=== PATIENT | male | born 1965 | race American Indian/Alaskan Native ===

== ENCOUNTER 2016-07-08 03:13 | Emergency (ER) | payer MEDICARE ==
[2016-07-08 03:57] LABS: Basophils % (Auto) 0.8 % (0.0-1.8); Eosinophils % (Auto) 4.6 % (0.0-4.3); Hematocrit 43.7 % (35.5-45.6); Hemoglobin 14.1 gm/dl (11.8-15.2); Mean Corpuscular HGB Conc 32 % (32-34); Mean Corpuscular Hemoglobin 27 pg (28-32); Mean Corpuscular Volume 83 fl (84-94); Platelet Count 266 K/mm3 (140-440); Red Cell Distribution Width 14.4 % (13.2-15.2); White Blood Count 5.9 K/mm3 (4.5-11.0)
[2016-07-08 04:19] LABS: Blood Urea Nitrogen 13 mg/dL (9-20); Calcium 9.1 mg/dL (8.4-10.2); Carbon Dioxide 28 mmol/L (22-30); Glucose 82 mg/dL (75-100); Sodium 141 mmol/L (137-145)
[2016-07-08 04:23] LABS: Anion Gap 15 mmol/L
[2016-07-08 10:08] VITALS: BP 119/73
--- NOTE | 2016-07-09 14:05 | ED Elopement Review ---
ED Pt Elopement review - Results review Lab results: Laboratory Tests 07/08/16 07/08/16 07/08/16 03:41 03:41 03:41 WBC 5.9 RBC 5.30 H Hgb 14.1 Hct 43.7 MCV 83 L MCH 27 L MCHC 32 RDW 14.4 Plt Count 266 Lymph % (Auto) 30.3 [place] % (Auto) 13.0 H Eos % (Auto) 4.6 H Baso % (Auto) 0.8 Lymph # 1.8 [place] # 0.8 Eos # 0.3 Baso # 0.1 Seg Neutrophils % 51.3 Seg Neutrophils # 3.1 Sodium 141 Potassium 4.0 Chloride 102.0 Carbon Dioxide 28 Anion Gap 15 BUN 13 Creatinine 1.0 Estimated GFR > 60 BUN/Creatinine Ratio 13.00 Glucose 82 Calcium 9.1 Plasma/Serum Alcohol < 0.01 - Call Back decision Pt Call Back Decision: No action required
== END 2016-07-08 14:30 | disposition left against medical advice (07) ==
LOC: ED 03:13
DX: R46.89 Other symptoms and signs involving appearance and behavior (principal); Z53.21 Procedure and treatment not carried out due to patient leaving prior to being seen by health care provider
CPT/HCPCS: 36415; 80048; 85025; G0480; 80320

== ENCOUNTER 2016-07-19 09:49 | Emergency (ER) | payer MEDICARE | END 2016-07-19 10:14 | disposition left against medical advice (07) | LOC: ED 09:49 | DX: N23 Unspecified renal colic (principal); Z88.5 Allergy status to narcotic agent; Z91.013 Allergy to seafood; Z53.21 Procedure and treatment not carried out due to patient leaving prior to being seen by health care provider ==

== ENCOUNTER 2017-10-21 07:11 | Emergency (ER) | payer MEDICARE ==
[2017-10-21 08:24] LABS: Basophils # (Auto) 0.1 K/mm3 (0.0-0.1); Basophils % (Auto) 0.8 % (0.0-1.8); Eosinophils # (Auto) 0.2 K/mm3 (0.0-0.4); Eosinophils % (Auto) 2.2 % (0.0-4.3); Hematocrit 46.6 % (35.5-45.6); Hemoglobin 15.6 gm/dl (11.8-15.2); Lymphocytes # (Auto) 1.5 K/mm3 (1.2-5.4); Lymphocytes % (Auto) 20.2 % (13.4-35.0); Mean Corpuscular HGB Conc 34 % (32-34); Mean Corpuscular Hemoglobin 28 pg (28-32); Mean Corpuscular Volume 83 fl (84-94); Monocytes # (Auto) 0.7 K/mm3 (0.0-0.8); Monocytes % (Auto) 9.2 % (0.0-7.3); Platelet Count 279 K/mm3 (140-440); Red Blood Count 5.62 M/mm3 (3.65-5.03); Red Cell Distribution Width 14.2 % (13.2-15.2)
[2017-10-21 08:38] LABS: BUN/Creatinine Ratio 20; Blood Urea Nitrogen 16 mg/dL (9-20); Hemolysis Index 11
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
[2017-10-21 09:39] LABS: Bilirubin,Urine NEG (Negative); Blood,Urine NEG (Negative); Color,Urine Yellow (Yellow); Mucus,Urine FEW /HPF; Protein,Urine <15 mg/dL mg/dL (Negative); Urobilinogen,Urine < 2.0 mg/dL (<2.0); WBC,Urine < 1.0 /HPF (0.0-6.0)
[2017-10-21 09:58] LABS: Amphetamine Screen,Urine PRESUMPTIVE NEGATIVE; Benzodiazepines Screen,Urine PRESUMPTIVE NEGATIVE; Cannabinoid Screen,Urine PRESUMPTIVE NEGATIVE; Methadone Screen,Urine PRESUMPTIVE NEGATIVE; Opiate Screen,Urine PRESUMPTIVE NEGATIVE
[2017-10-21 10:09] LABS: Cocaine Screen,Urine PRESUMPTIVE POSITIVE
[2017-10-21 21:28] VITALS: BP 103/62
== END 2017-10-22 00:36 ==
LOC: ED 07:11
DX: F33.3 Major depressive disorder, recurrent, severe with psychotic symptoms (principal); F14.10 Cocaine abuse, uncomplicated; J44.9 Chronic obstructive pulmonary disease, unspecified; F17.200 Nicotine dependence, unspecified, uncomplicated; Z95.0 Presence of cardiac pacemaker; Z88.5 Allergy status to narcotic agent; Z91.013 Allergy to seafood; Z79.899 Other long term (current) drug therapy
CPT/HCPCS: 36415; 80048; 80307; 81001; 85025; 93005; 93010; 99285; G0480; 80320

== ENCOUNTER 2017-11-13 02:31 | Emergency (ER) | payer MEDICARE ==
[2017-11-13 03:15] LABS: Basophils % (Auto) 0.8 % (0.0-1.8); Eosinophils # (Auto) 0.3 K/mm3 (0.0-0.4); Eosinophils % (Auto) 5.7 % (0.0-4.3); Hematocrit 44.5 % (35.5-45.6); Lymphocytes # (Auto) 1.6 K/mm3 (1.2-5.4); Lymphocytes % (Auto) 27.9 % (13.4-35.0); Mean Corpuscular HGB Conc 34 % (32-34); Mean Corpuscular Hemoglobin 28 pg (28-32); Mean Corpuscular Volume 82 fl (84-94); Monocytes # (Auto) 0.7 K/mm3 (0.0-0.8); Monocytes % (Auto) 11.5 % (0.0-7.3); Platelet Count 342 K/mm3 (140-440); Red Cell Distribution Width 14.6 % (13.2-15.2)
[2017-11-13 03:47] LABS: BUN/Creatinine Ratio 10; Blood Urea Nitrogen 9 mg/dL (9-20); Calcium 9.3 mg/dL (8.4-10.2); Hemolysis Index 4
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
[2017-11-13] MEDS ORDERED: ATIVAN IM PRN (05:02)
[2017-11-13] MEDS ORDERED: GEODON IM ONE ×2 (06:05→06:08)
--- NOTE | 2017-11-13 13:13 | Consultation ---
History of Present Illness - Reason for Consult Consult date: 11/13/17 Reason for consult: Mental Health Evaluation Requesting physician: MICHAEL GOMEZ - Chief Complaint Chief complaint: "The patient is sedated" - History of Present Psychiatric Illness 52-year-old male presenting with a chief complaint of suicidal ideation. Today the patient is sedated and unable to cooperate during the interview. The patient was given PRN medication for agitation prior to my arrival to his room. Medications and Allergies Allergies Allergy/AdvReac Type Severity Reaction Status Date / Time shellfish derived Allergy Anaphylaxis Verified 10/21/17 07:19 morphine AdvReac Itching Verified 10/21/17 07:19 Home Medications Medication Instructions Recorded Confirmed Last Taken Type OLANzapine [Zyprexa] 20 mg PO QHS 10/07/13 11/13/17 1 Day Ago History ~04/25/16 10 Sertraline [Zoloft] 100 mg PO QHS 10/07/13 11/13/17 1 Day Ago History ~04/25/16 100 ALBUTEROL Inhaler [ProAir HFA 2 puff IH QID PRN #1 inhalation 04/26/16 11/13/17 Unknown Rx Inhaler] Active Meds: Active Medications Lorazepam (Ativan) 2 mg IM Q8H PRN PRN Reason: Agitation Last Admin: 11/13/17 06:00 Dose: 2 mg Past psychiatric history - Past Medical History Past Medical History: other (Unable to obtain ) Past Surgical History: Other (Unable to obtain) - past Psychiatric treatment and history psychiatric treatment history: Unable to obtain and psy hx and fam psy hx. - Social History Social history: other (Unable to obtain ) Mental Status Exam - Vital signs Last Vital Signs Temp 97.7 F 11/13/17 04:37 Pulse 77 11/13/17 04:37 Resp 16 11/13/17 04:37 BP 101/61 11/13/17 04:37 Pulse Ox 97 11/13/17 04:37 - Exam Narrative exam: The MSE could not be completed because of the patient's condition. Results Result Diagrams: 11/13/17 03:08 11/13/17 03:08 Abnormal lab results 11/13/17 11/13/17 11/13/17 Range/Units 03:07 03:07 03:08 RBC (3.65-5.03) M/mm3 MCV (84-94) fl [place] % (Auto) (0.0-7.3) % Eos % (Auto) (0.0-4.3) % Chloride 97.8 L (98-107) mmol/L Glucose 127 H (75-100) mg/dL Salicylates < 0.3 L (2.8-20.0) mg/dL Acetaminophen < 5.0 L (10.0-30.0) ug/mL 11/13/17 Range/Units 03:08 RBC 5.40 H (3.65-5.03) M/mm3 MCV 82 L (84-94) fl [place] % (Auto) 11.5 H (0.0-7.3) % Eos % (Auto) 5.7 H (0.0-4.3) % Chloride (98-107) mmol/L Glucose (75-100) mg/dL Salicylates (2.8-20.0) mg/dL Acetaminophen (10.0-30.0) ug/mL All other labs normal. Assessment and Plan Assessment and plan: Impression: The patient is sedated. UDS have not been collected. Recommendation/Plan: Continue 1013 and reassess patient is 24 hours.
[2017-11-13 17:43] LABS: Bacteria,Urine 1+ /HPF (Negative); Bilirubin,Urine NEG (Negative); Blood,Urine NEG (Negative); Color,Urine Yellow (Yellow); Hyaline Casts,Urine 1 /LPF; Mucus,Urine 2+ /HPF; Protein,Urine <15 mg/dL mg/dL (Negative); Sperm,Urine 1+ /HPF (NP)
[2017-11-13 18:14] LABS: Amphetamine Screen,Urine PRESUMPTIVE NEGATIVE; Benzodiazepines Screen,Urine PRESUMPTIVE NEGATIVE; Cannabinoid Screen,Urine PRESUMPTIVE NEGATIVE; Methadone Screen,Urine PRESUMPTIVE NEGATIVE; Opiate Screen,Urine PRESUMPTIVE NEGATIVE
[2017-11-13 18:44] LABS: Cocaine Screen,Urine PRESUMPTIVE POSITIVE
[2017-11-13 22:39] VITALS: BP 110/62
== END 2017-11-14 02:31 ==
LOC: ED 02:31
DX: R45.851 Suicidal ideations (principal); R44.0 Auditory hallucinations; J44.9 Chronic obstructive pulmonary disease, unspecified
CPT/HCPCS: 36415; 80048; 80307; 81001; 85025; 96372; 99285; G0480; J2060; J3486; 80320

== ENCOUNTER 2017-12-24 08:15 | Emergency (ER) | payer MEDICARE ==
[2017-12-24] MEDS ORDERED: DELTASONE PO ONE (08:46)
[2017-12-24] MEDS ORDERED: TYLENOL PO ONE (08:46)
[2017-12-24] MEDS ORDERED: DUONEB *Not for PRN Use IH ONE ×2 (08:46→10:37)
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
[2017-12-24] MEDS ORDERED: HYDROCORTISONE CR TP ONE (09:02)
--- NOTE | 2017-12-24 10:14 | XRay Report ---
FINAL REPORT EXAM: XR FOOT 3+V RT HISTORY: right foot pain acute on chronic TECHNIQUE: Three views right foot. PRIORS: None currently available. FINDINGS: There is no acute fracture. There is no evidence for healing fracture. There is no acute dislocation. Moderate nonspecific arthrosis of the subtalar joint. Mild arthrosis at the midfoot. Calcifications around the Achilles tendon. There is no cortical destruction to suggest osteomyelitis. Nonspecific lucency at the inferior aspect of the calcaneus. Calcaneal internal fixation hardware appears intact without loosening or dislodgement. IMPRESSION: No acute osseous findings. Intact hardware. [id number] multifocal arthrosis. Nonspecific lesion at the inferior calcaneus. Further imaging with calcaneal x-rays may be helpful for better evaluation. Calcifications around the Achilles tendon may be related to calcific tendinopathy.
[2017-12-24] MEDS ORDERED: ZITHROMAX PO ONE (10:42)
[2017-12-24 10:51] VITALS: BP 136/85
== END 2017-12-24 11:22 | disposition home or self-care (01) ==
LOC: ED 08:15
DX: M79.671 Pain in right foot (principal); J44.1 Chronic obstructive pulmonary disease with (acute) exacerbation; Z91.013 Allergy to seafood; Z88.5 Allergy status to narcotic agent; F31.9 Bipolar disorder, unspecified; F17.200 Nicotine dependence, unspecified, uncomplicated; J45.909 Unspecified asthma, uncomplicated
CPT/HCPCS: 73630; 94640; 99283; J7512; A6250

== ENCOUNTER 2018-03-10 05:42 | Emergency (ER) | payer MEDICARE ==
[2018-03-10 05:52] VITALS: BP 106/76
[2018-03-10] MEDS ORDERED: XYLOCAINE TOPICAL 2% 5ML TP ONE (06:59)
[2018-03-10] MEDS ORDERED: XYLOCAINE TOPICAL 2% 5ML ONE (07:02)
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
[2018-03-10] MEDS ORDERED: TRIPLE ANTIBIOTIC TP ONE (08:42)
--- NOTE | 2018-03-10 08:51 | XRay Report ---
FINAL REPORT EXAM: XR ELBOW 2V LT HISTORY: swelling COMPARISONS: None. FINDINGS: AP and lateral views left elbow There is focal soft tissue swelling over the olecranon. No left elbow joint effusion, fracture or gross malalignment identified. IMPRESSION: Olecranon bursitis may be posttraumatic, infectious or inflammatory in etiology. Correlation with history and patient's symptoms is requested. No elbow joint effusion or gross malalignment.
== END 2018-03-10 09:21 | disposition home or self-care (01) ==
LOC: ED 05:42
DX: M70.32 Other bursitis of elbow, left elbow (principal); F31.9 Bipolar disorder, unspecified; J44.9 Chronic obstructive pulmonary disease, unspecified; F17.200 Nicotine dependence, unspecified, uncomplicated; Z95.0 Presence of cardiac pacemaker; Z91.013 Allergy to seafood; Z88.5 Allergy status to narcotic agent
CPT/HCPCS: 99283; A6250

== ENCOUNTER 2018-03-29 01:43 | Emergency (ER) | payer MEDICARE ==
[2018-03-29 02:26] LABS: Hematocrit 40.4 % (35.5-45.6); Hemoglobin 13.5 gm/dl (11.8-15.2); Mean Corpuscular HGB Conc 34 % (32-34); Mean Corpuscular Hemoglobin 28 pg (28-32); Mean Corpuscular Volume 82 fl (84-94); Platelet Count 231 K/mm3 (140-440); Red Blood Count 4.91 M/mm3 (3.65-5.03); Red Cell Distribution Width 15.2 % (13.2-15.2)
[2018-03-29 02:50] LABS: BUN/Creatinine Ratio 17; Blood Urea Nitrogen 12 mg/dL (9-20); Calcium 9.4 mg/dL (8.4-10.2); Hemolysis Index 3
[2018-03-29 03:29] LABS: Anisocytosis 1+; Band Neutrophils # (Manual) 0.3 K/mm3; Basophils % (Manual) 0 % (0.0-1.8); Total Cells Counted 100
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
[2018-03-29 07:07] LABS: Bilirubin,Urine NEG (Negative); Blood,Urine NEG (Negative); Color,Urine Yellow (Yellow); Mucus,Urine FEW /HPF; Protein,Urine <15 mg/dL mg/dL (Negative)
[2018-03-29 07:19] LABS: Amphetamine Screen,Urine PRESUMPTIVE NEGATIVE; Benzodiazepines Screen,Urine PRESUMPTIVE NEGATIVE; Cannabinoid Screen,Urine PRESUMPTIVE NEGATIVE; Methadone Screen,Urine PRESUMPTIVE NEGATIVE; Opiate Screen,Urine PRESUMPTIVE NEGATIVE
[2018-03-29 07:31] LABS: Cocaine Screen,Urine PRESUMPTIVE POSITIVE
[2018-03-29 09:45] VITALS: BP 112/63
== END 2018-03-29 11:57 | disposition left against medical advice (07) ==
LOC: ED 01:43
DX: F14.10 Cocaine abuse, uncomplicated (principal); F10.10 Alcohol abuse, uncomplicated; J44.9 Chronic obstructive pulmonary disease, unspecified; F17.200 Nicotine dependence, unspecified, uncomplicated; Z95.0 Presence of cardiac pacemaker; Z88.6 Allergy status to analgesic agent; Z91.013 Allergy to seafood
CPT/HCPCS: 36415; 80048; 80307; 81001; 85007; 85025; 99284; G0480; 80320

== ENCOUNTER 2018-04-02 02:16 | Emergency (ER) | payer MEDICARE ==
[2018-04-02 03:43] LABS: Basophils # (Auto) 0.1 K/mm3 (0.0-0.1); Eosinophils # (Auto) 0.5 K/mm3 (0.0-0.4); Eosinophils % (Auto) 7.4 % (0.0-4.3); Hematocrit 40.6 % (35.5-45.6); Hemoglobin 13.4 gm/dl (11.8-15.2); Lymphocytes # (Auto) 2.2 K/mm3 (1.2-5.4); Lymphocytes % (Auto) 34.6 % (13.4-35.0); Mean Corpuscular HGB Conc 33 % (32-34); Mean Corpuscular Hemoglobin 27 pg (28-32); Mean Corpuscular Volume 83 fl (84-94); Monocytes # (Auto) 0.8 K/mm3 (0.0-0.8); Monocytes % (Auto) 11.7 % (0.0-7.3); Platelet Count 294 K/mm3 (140-440); Red Blood Count 4.88 M/mm3 (3.65-5.03); Red Cell Distribution Width 15.3 % (13.2-15.2)
[2018-04-02 04:00] LABS: BUN/Creatinine Ratio 13; Blood Urea Nitrogen 13 mg/dL (9-20); Calcium 9.4 mg/dL (8.4-10.2); Hemolysis Index 12
[2018-04-02 05:57] LABS: Bilirubin,Urine NEG (Negative); Blood,Urine NEG (Negative); Calcium Oxalate Crystals,Urine 2+; Color,Urine Yellow (Yellow); Mucus,Urine FEW /HPF; Protein,Urine <15 mg/dL mg/dL (Negative)
[2018-04-02 06:05] LABS: Amphetamine Screen,Urine PRESUMPTIVE NEGATIVE; Benzodiazepines Screen,Urine PRESUMPTIVE NEGATIVE; Cannabinoid Screen,Urine PRESUMPTIVE NEGATIVE; Methadone Screen,Urine PRESUMPTIVE NEGATIVE; Opiate Screen,Urine PRESUMPTIVE NEGATIVE
[2018-04-02 06:40] LABS: Cocaine Screen,Urine PRESUMPTIVE POSITIVE
[2018-04-02 07:28] LABS: Creatine Kinase MB 6.5 ng/mL (0.0-4.0)
[2018-04-02] MEDS ORDERED: NACL 0.9% 1000 ML 1,000 ML IV ONE (11:48)
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
[2018-04-02 15:54] VITALS: BP 112/65
[2018-04-02 16:01] LABS: Creatine Kinase MB 3.9 ng/mL (0.0-4.0)
== END 2018-04-02 15:46 | disposition admitted as inpatient to this hospital (09) ==
LOC: ED 02:16
DX: F14.10 Cocaine abuse, uncomplicated (principal); F10.10 Alcohol abuse, uncomplicated; M62.82 Rhabdomyolysis; F31.9 Bipolar disorder, unspecified; J44.9 Chronic obstructive pulmonary disease, unspecified; F17.200 Nicotine dependence, unspecified, uncomplicated; Z95.0 Presence of cardiac pacemaker; Z88.6 Allergy status to analgesic agent; Z91.013 Allergy to seafood
CPT/HCPCS: 36415; 80048; 80307; 81001; 82550; 82553; 85025; 99284; G0480; J7030; 80320

== ENCOUNTER 2018-07-12 12:05 | Emergency (ER) | payer MEDICARE ==
[2018-07-12 12:13] VITALS: BP 121/72
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
== END 2018-07-12 12:58 | disposition home or self-care (01) ==
LOC: ED 12:05
DX: M70.32 Other bursitis of elbow, left elbow (principal); F31.9 Bipolar disorder, unspecified; F17.200 Nicotine dependence, unspecified, uncomplicated; Z91.013 Allergy to seafood; Z88.6 Allergy status to analgesic agent; Y93.89 Activity, other specified
CPT/HCPCS: 99282

== ENCOUNTER 2019-07-29 07:36 | Emergency (ER) | payer MEDICARE ==
[2019-07-29] MEDS ORDERED: dexAMETHasone 20 MG/5 ML VIAL IM ONE (10:44)
[2019-07-29] MEDS ORDERED: IPRATROPIUM 0.02% NEBU 2.5 ML IH ONE (10:44)
[2019-07-29] MEDS ORDERED: ALBUTEROL 2.5 MG/3 ML NEBU IH ONE (10:44)
[2019-07-29] MEDS ORDERED: predniSONE 20 MG TAB PO ONE (11:25)
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
[2019-07-29 13:28] VITALS: BP 110/70
== END 2019-07-29 13:27 | disposition home or self-care (01) ==
LOC: ED 07:36
DX: J44.9 Chronic obstructive pulmonary disease, unspecified (principal); J45.901 Unspecified asthma with (acute) exacerbation; F31.9 Bipolar disorder, unspecified; F17.200 Nicotine dependence, unspecified, uncomplicated; Z98.890 Other specified postprocedural states; Z88.4 Allergy status to anesthetic agent; Z91.013 Allergy to seafood
CPT/HCPCS: 94640; 99283; J7512; 94644; J1100

== ENCOUNTER 2019-08-01 04:09 | Emergency (ER) | payer MEDICARE ==
[2019-08-01] MEDS ORDERED: IPRATROPIUM 0.02% NEBU 2.5 ML IH ONE ×2 (04:22→04:36)
[2019-08-01] MEDS ORDERED: ALBUTEROL 2.5 MG/3 ML NEBU IH ONE ×2 (04:22→04:36)
[2019-08-01 05:09] VITALS: BP 117/76
[2019-08-01] MEDS ORDERED: predniSONE 20 MG TAB PO ONE (07:45)
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
== END 2019-08-01 08:09 | disposition home or self-care (01) ==
LOC: ED 04:09
DX: J44.9 Chronic obstructive pulmonary disease, unspecified (principal); F17.200 Nicotine dependence, unspecified, uncomplicated; Z79.899 Other long term (current) drug therapy; Z91.013 Allergy to seafood; Z88.5 Allergy status to narcotic agent
CPT/HCPCS: 94640; 99282; J7512; 94644

== ENCOUNTER 2019-08-02 05:20 | Emergency (ER) | payer MEDICARE ==
[2019-08-02] MEDS ORDERED: IPRATROPIUM/ALBUTEROL SULFATE 3 ML AMPUL.NEB IH ONE ×2 (05:56→06:00)
[2019-08-02] MEDS ORDERED: dexAMETHasone 20 MG/5 ML VIAL IM ONE (06:46)
[2019-08-02] MEDS ORDERED: ALBUTEROL 2.5 MG/3 ML NEBU IH ONE (06:47)
[2019-08-02] MEDS ORDERED: dexAMETHasone 20 MG/5 ML VIAL IV ONE (07:24)
[2019-08-02] MEDS ORDERED: SODIUM CHLORIDE 0.9% 1000 ML 1,000 ML IV ONE (07:25)
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
[2019-08-02] MEDS ORDERED: cefTRIAXone/NS 1 GM/50 ML 1 GM/50 ML BAG IV ONE (08:19)
[2019-08-02] MEDS ORDERED: AZITHROMYCIN 250 MG TAB PO ONE (08:19)
[2019-08-02 09:03] LABS: Basophils % (Auto) 0.6 % (0.0-1.8); Eosinophils # (Auto) 0.2 K/mm3 (0.0-0.4); Eosinophils % (Auto) 3.2 % (0.0-4.3); Hematocrit 40.9 % (35.5-45.6); Hemoglobin 13.4 gm/dl (11.8-15.2); Lymphocytes % (Auto) 29.2 % (13.4-35.0); Mean Corpuscular HGB Conc 33 % (32-34); Mean Corpuscular Volume 84 fl (84-94); Monocytes # (Auto) 0.9 K/mm3 (0.0-0.8); Monocytes % (Auto) 13.1 % (0.0-7.3); Platelet Count 231 K/mm3 (140-440); Red Blood Count 4.87 M/mm3 (3.65-5.03)
[2019-08-02 09:29] LABS: Alanine Aminotransferase 14 units/L (7-56); Albumin 3.8 g/dL (3.9-5); BUN/Creatinine Ratio 11; Blood Urea Nitrogen 9 mg/dL (9-20); Hemolysis Index 89
[2019-08-02 10:13] VITALS: BP 131/85
== END 2019-08-02 10:45 | disposition left against medical advice (07) ==
LOC: ED 05:20
DX: J20.9 Acute bronchitis, unspecified (principal); J44.0 Chronic obstructive pulmonary disease with (acute) lower respiratory infection; F31.9 Bipolar disorder, unspecified; Z98.890 Other specified postprocedural states; F17.200 Nicotine dependence, unspecified, uncomplicated; Z79.1 Long term (current) use of non-steroidal anti-inflammatories (NSAID); Z79.899 Other long term (current) drug therapy; Z91.013 Allergy to seafood; Z88.4 Allergy status to anesthetic agent
CPT/HCPCS: 36415; 71046; 80053; 85025; 94640; 96365; 96375; 99284; J0696; J1100; J7030; 94644